=== PATIENT | female | born 1990 | race African-American/Black ===

== ENCOUNTER 2016-11-19 13:07 | Emergency (ER) | payer OTHER ==
[~2016-11-19] VITALS: Ht 172.7 cm; Wt 70.3 kg
[2016-11-19] MEDS ORDERED: METHADONE PO (13:24)
[2016-11-19 13:41] LABS: URINE SOURCE CLEAN CATCH
[2016-11-19 13:44] LABS: URINE APPEARANCE CLEAR; URINE BILIRUBIN NEG (NEG); URINE BLOOD NEG (NEG); URINE COLOR YELLOW; URINE GLUCOSE NEG (NORM); URINE KETONE NEG (NEG); URINE LEUKOCYTE ESTERASE NEG (NEG); URINE NITRATE NEG (NEG); URINE PROTEIN NEG (NEG); URINE SPECIFIC GRAVITY 1.015 (1.003-1.035)
[2016-11-19 13:46] LABS: MICRO INDICATED? NO
== END 2016-11-19 14:22 | disposition home or self-care (01) ==
LOC: SED 13:07
PROVIDERS: Emergency Medicine
DX: O99.612 Diseases of the digestive system complicating pregnancy, second trimester (principal); K59.00 Constipation, unspecified; O99.332 Smoking (tobacco) complicating pregnancy, second trimester
CPT/HCPCS: 36415; 81003; 84703; 99284